=== PATIENT | male | born 1935 | race Caucasian/White ===

== ENCOUNTER 2019-08-27 09:24 | Inpatient (IN) ==
[2019-08-27] MEDS ORDERED: Ondansetron 4 MG/2 ML VIAL IVP ONE (09:44)
[2019-08-27] MEDS ORDERED: Morphine Sulfate 2 MG/ML SYRINGE IVP ONE (09:44)
[2019-08-27] MEDS ORDERED: 0.9 % Sodium Chloride 500 ML IVC ONE (09:45)
[2019-08-27 09:52] LABS: Bilirubin,Urine Small (Negative); Blood,Urine Negative (Negative); Clarity,Urine Clear (Clear); Color,Urine Dark Yellow (Yellow); Glucose,Urine (UA) Normal (Normal); Ketones,Urine Negative (Negative); Leukocyte Esterase,Urine Negative (Negative); Nitrite,Urine Negative (Negative); PH,Urine 5.5 pH Units (5.0-8.0); Protein,Urine 100 mg/dL (Neg-Trace); Specific Gravity,Urine 1.028 (1.010-1.025); Urobilinogen,Urine Normal (Normal)
[2019-08-27 09:53] LABS: Bacteria,Urine None Seen per hpf (None-Few); Hyaline Casts,Urine Few per lpf (None-Few); Squamous Epithelial Cell,Urine Many per lpf (None-Few)
[2019-08-27 10:29] LABS: Basophils % 0.1 %; Hematocrit 42.3 % (37.5-50.1); Hemoglobin 14.3 g/dL (12.9-16.9); Immature Granulocytes % 0.8 % (0-4); Lymphocytes % 5.7 %; Mean Corpuscular HGB Conc 33.8 g/dL (31.6-35.5); Mean Corpuscular Hemoglobin 28.5 pg (28.0-33.3); Mean Corpuscular Volume 84.3 fL (83.0-100.0); Mean Platelet Volume 10.9 fL (9.4-12.4); Monocytes # 1.4 K/mcL (0.0-1.3); Monocytes % 8.1 %; Neutrophils # 14.7 K/mcL (1.6-8.9); Platelet Count 163 K/mcL (140-400); Red Blood Count 5.02 M/mcL (4.19-5.50); Red Cell Distribution Width 13.3 % (11.5-14.5); Segmented Neutrophils % 85.3 %; White Blood Count 17.3 K/mcL (4.3-11.1)
[2019-08-27 10:45] LABS: Albumin 3.9 g/dL (3.5-5.7); Albumin/Globulin Ratio 1.4 (1.1-2.2); Bilirubin,Direct 0.2 mg/dL (0.0-0.2); Bilirubin,Indirect 0.8 mg/dL (0.0-1.0); Globulin 2.7 g/dL (2.4-3.5); Potassium 3.7 mEq/L (3.5-5.1); Total Protein 6.6 g/dL (6.4-8.9); Troponin I 0.03 ng/mL (< 0.04)
[2019-08-27] MEDS ORDERED: Piperacillin/Tazobactam 3.375 GM in Water for inj. (sterile) 20 ML IVP ONE (11:43)
[2019-08-27] MEDS ORDERED: Acetaminophen 325 MG TABLET PO PRN (12:48)
[2019-08-27] MEDS ORDERED: *HR* HYDROcodone/Acet 5/325 mg TABLET PO PRN (12:48)
[2019-08-27] MEDS ORDERED: Ondansetron 4 MG/2 ML VIAL IVP PRN (12:48)
[2019-08-27] MEDS ORDERED: Naloxone 0.4 MG/ML INJ IVP PRN (12:48)
[2019-08-27] MEDS: Gabapentin 300 MG CAPSULE PO SCH ×2 (14:04→20:36)
[2019-08-27] MEDS: Piperacillin/Tazobactam 3.375 GM in 0.9 % Sodium Chloride Mini Bag 100 ML IVPB SCH (15:46)
[2019-08-28] MEDS: Piperacillin/Tazobactam 3.375 GM in 0.9 % Sodium Chloride Mini Bag 100 ML IVPB SCH ×4 (00:14→23:42)
[2019-08-28 05:49] LABS: Basophils % 0.2 %; Eosinophils % 0.1 %; Hematocrit 42.7 % (37.5-50.1); Hemoglobin 13.2 g/dL (12.9-16.9); Lymphocytes % 6.4 %; Mean Corpuscular HGB Conc 30.9 g/dL (31.6-35.5); Mean Corpuscular Hemoglobin 27.8 pg (28.0-33.3); Mean Corpuscular Volume 89.9 fL (83.0-100.0); Mean Platelet Volume 10.8 fL (9.4-12.4); Monocytes # 1.6 K/mcL (0.0-1.3); Monocytes % 9.7 %; Neutrophils # 13.3 K/mcL (1.6-8.9); Platelet Count 150 K/mcL (140-400); Red Blood Count 4.75 M/mcL (4.19-5.50); Red Cell Distribution Width 13.7 % (11.5-14.5); Segmented Neutrophils % 82.6 %; White Blood Count 16.1 K/mcL (4.3-11.1)
[2019-08-28 06:12] LABS: Calcium 8.4 mg/dL (8.6-10.3)
[2019-08-28] MEDS: Gabapentin 300 MG CAPSULE PO SCH ×3 (07:23→21:10)
[2019-08-28] MEDS ORDERED: Ringers Solution, Lactated 1,000 ML IVC SCH (08:45)
[2019-08-28] MEDS ORDERED: Metoprolol XL (24 HR) Succ 25 MG TAB.ER.24H PO SCH (09:00)
[2019-08-28] MEDS ORDERED: Finasteride 5 MG TABLET PO SCH (09:00)
[2019-08-28] MEDS ORDERED: Cholecalciferol (D-3) 1,000 UNIT (25MCG) TABLET PO SCH (09:00)
[2019-08-28] MEDS ORDERED: Aspirin Enteric Coated 81 MG Tablet PO SCH (09:00)
[2019-08-28] MEDS ORDERED: Cyanocobalamin (B-12) 1,000 MCG TABLET PO SCH (09:00)
[2019-08-28] MEDS ORDERED: 0.9 % Sodium Chloride 1,000 ML IVC SCH (09:00)
[2019-08-28] MEDS ORDERED: Isovue-300 50ML VIAL ONE (16:06)
[2019-08-28] MEDS ORDERED: *HR* Rocuronium Bromide 50 MG/5 ML VIAL ONE (16:15)
[2019-08-28] MEDS ORDERED: *HR* Etomidate 40 MG/20 ML VIAL IVP ONE (16:15)
[2019-08-28] MEDS ORDERED: *HR* Succinylcholine 200 MG/10 ML VIAL IVP ONE (16:15)
[2019-08-28] MEDS ORDERED: *HR* FentaNYL (PF) 100 MCG/2 ML VIAL ONE (16:15)
[2019-08-28] MEDS ORDERED: Lidocaine -MPF 4% 5 ML AMPUL ONE (16:15)
[2019-08-28] MEDS ORDERED: *HR* Propofol 200 MG/20 ML VIAL IVP ONE (16:15)
[2019-08-28] MEDS ORDERED: Lidocaine -MPF 2% 2 ML VIAL ONE (16:15)
[2019-08-28] MEDS ORDERED: Acetaminophen IV 1,000 MG/100 ML INFUS..BTL ONE (16:26)
[2019-08-28] MEDS ORDERED: Famotidine 20 MG/2 ML VIAL ONE (16:26)
[2019-08-28] MEDS ORDERED: Lacri-Lube 3.5 GM TUBE ONE (16:59)
[2019-08-28] MEDS ORDERED: EPHEDrine 50 MG/ML VIAL ONE (17:02)
[2019-08-28] MEDS ORDERED: Neostigmine Methylsulfate 3 MG/3 ML SYRINGE ONE (17:47)
[2019-08-28] MEDS ORDERED: CefOXitin 2,000 MG VIAL ONE (17:47)
[2019-08-28] MEDS ORDERED: *HR* HYDROcodone/Acet 5/325 mg TABLET PO PRN (20:51)
[2019-08-28] MEDS ORDERED: Naloxone 0.4 MG/ML INJ IVP PRN (20:51)
[2019-08-28] MEDS ORDERED: Acetaminophen 325 MG TABLET PO PRN (20:51)
[2019-08-28] MEDS: 0.9 % Sodium Chloride 1,000 ML IVC SCH (21:11)
[2019-08-29 04:48] LABS: Basophils % 0.3 %; Hematocrit 40.7 % (37.5-50.1); Immature Granulocytes % 0.8 % (0-4); Lymphocytes # 0.6 K/mcL (0.6-4.6); Lymphocytes % 4.2 %; Mean Corpuscular HGB Conc 31.9 g/dL (31.6-35.5); Mean Corpuscular Hemoglobin 28.6 pg (28.0-33.3); Mean Corpuscular Volume 89.5 fL (83.0-100.0); Mean Platelet Volume 11.2 fL (9.4-12.4); Monocytes # 1.1 K/mcL (0.0-1.3); Monocytes % 7.6 %; Neutrophils # 12.9 K/mcL (1.6-8.9); Platelet Count 138 K/mcL (140-400); Red Blood Count 4.55 M/mcL (4.19-5.50); Red Cell Distribution Width 13.7 % (11.5-14.5); Segmented Neutrophils % 87.1 %; White Blood Count 14.8 K/mcL (4.3-11.1)
[2019-08-29 05:15] LABS: Calcium 8.1 mg/dL (8.6-10.3); Potassium 4.1 mEq/L (3.5-5.1)
[2019-08-29] MEDS: Finasteride 5 MG TABLET PO SCH (08:19)
[2019-08-29] MEDS: Aspirin Enteric Coated 81 MG Tablet PO SCH (08:19)
[2019-08-29] MEDS: Metoprolol XL (24 HR) Succ 25 MG TAB.ER.24H PO SCH (08:19)
[2019-08-29] MEDS: Gabapentin 300 MG CAPSULE PO SCH ×3 (08:19→20:19)
[2019-08-29] MEDS: Cholecalciferol (D-3) 1,000 UNIT (25MCG) TABLET PO SCH (08:20)
[2019-08-29] MEDS: Piperacillin/Tazobactam 3.375 GM in 0.9 % Sodium Chloride Mini Bag 100 ML IVPB SCH ×2 (08:20→16:47)
[2019-08-29] MEDS: Cyanocobalamin (B-12) 1,000 MCG TABLET PO SCH (08:20)
[2019-08-29] MEDS: 0.9 % Sodium Chloride 1,000 ML IVC SCH (13:49)
[2019-08-30] MEDS: Piperacillin/Tazobactam 3.375 GM in 0.9 % Sodium Chloride Mini Bag 100 ML IVPB SCH ×4 (00:51→23:19)
[2019-08-30] MEDS: Ondansetron 4 MG/2 ML VIAL IVP PRN ×4 (03:20→21:16)
[2019-08-30] MEDS: 0.9 % Sodium Chloride 1,000 ML IVC SCH (03:21)
[2019-08-30] MEDS: Finasteride 5 MG TABLET PO SCH (08:17)
[2019-08-30] MEDS: Aspirin Enteric Coated 81 MG Tablet PO SCH (08:18)
[2019-08-30] MEDS: Cyanocobalamin (B-12) 1,000 MCG TABLET PO SCH (08:18)
[2019-08-30] MEDS: Cholecalciferol (D-3) 1,000 UNIT (25MCG) TABLET PO SCH (08:18)
[2019-08-30] MEDS: Gabapentin 300 MG CAPSULE PO SCH ×3 (08:18→21:14)
[2019-08-30] MEDS: Metoprolol XL (24 HR) Succ 25 MG TAB.ER.24H PO SCH (08:18)
[2019-08-30 11:14] LABS: Basophils % 0.3 %; Eosinophils # 0.2 K/mcL (0.0-0.6); Eosinophils % 1.8 %; Hematocrit 38.8 % (37.5-50.1); Hemoglobin 12.3 g/dL (12.9-16.9); Lymphocytes # 0.9 K/mcL (0.6-4.6); Lymphocytes % 8.6 %; Mean Corpuscular HGB Conc 31.7 g/dL (31.6-35.5); Mean Corpuscular Hemoglobin 28.5 pg (28.0-33.3); Mean Corpuscular Volume 89.8 fL (83.0-100.0); Mean Platelet Volume 10.7 fL (9.4-12.4); Monocytes # 1.1 K/mcL (0.0-1.3); Monocytes % 10.6 %; Platelet Count 146 K/mcL (140-400); Red Blood Count 4.32 M/mcL (4.19-5.50); Red Cell Distribution Width 13.6 % (11.5-14.5); Segmented Neutrophils % 77.7 %; White Blood Count 10.3 K/mcL (4.3-11.1)
[2019-08-30 11:31] LABS: BUN/Creatinine Ratio 20 (6-26); Blood Urea Nitrogen 27 mg/dL (8-23); Calcium 7.9 mg/dL (8.6-10.3); Carbon Dioxide 27 mEq/L (23-29); Chloride 105 mEq/L (98-107); Glucose 118 mg/dL (70-105); Osmolality,Calculated 296 (280-300); Potassium 4.1 mEq/L (3.5-5.1); Sodium 140 mEq/L (136-145); eGFR For African Americans > 60 (> 60); eGFR For Non-African Americans 51 (> 60)
[2019-08-30] MEDS: Lisinopril 20 MG TABLET PO SCH (13:02)
[2019-08-30] MEDS ORDERED: Metoclopramide 10 MG/2 ML VIAL IVP ONE (22:35)
[2019-08-31 10:50] VITALS: BP 169/89
[2019-08-31] MEDS: Piperacillin/Tazobactam 3.375 GM in 0.9 % Sodium Chloride Mini Bag 100 ML IVPB SCH (11:59)
[2019-08-31] MEDS: Finasteride 5 MG TABLET PO SCH (12:00)
[2019-08-31] MEDS: Cyanocobalamin (B-12) 1,000 MCG TABLET PO SCH (12:00)
[2019-08-31] MEDS: Aspirin Enteric Coated 81 MG Tablet PO SCH (12:00)
[2019-08-31] MEDS: Cholecalciferol (D-3) 1,000 UNIT (25MCG) TABLET PO SCH (12:00)
[2019-08-31] MEDS: Gabapentin 300 MG CAPSULE PO SCH (12:00)
[2019-08-31] MEDS: Metoprolol XL (24 HR) Succ 25 MG TAB.ER.24H PO SCH (12:00)
[2019-08-31] MEDS: Lisinopril 20 MG TABLET PO SCH (12:00)
== END 2019-08-31 13:39 | disposition home or self-care (01) | DRG 854 ==
LOC: EMEROOARM 09:24 → 3ANU 09:24 → SUATTDRO 12:43 → 3ANU 13:17
PROVIDERS: ADMIT Internal Medicine; ATTEND Internal Medicine